=== PATIENT | female | born 1985 | race Native Hawaiian/Other Pacific Islander ===

== ENCOUNTER 2022-04-17 15:43 | Outpatient (CLI) | payer OTHER, SELFPAY ==
[2022-04-17 20:57] LABS: Hepatitis B Surface Antigen* Negative (Negative)
[2022-04-17 21:07] LABS: HIV 1/2/P24 Combo Screen* Negative (Negative)
[2022-04-17 21:14] LABS: Hepatitis C Virus Antibody* Negative (Negative)
[2022-04-17 21:51] LABS: Chlamydia DNA Amplified* NOT DETECTED (No Detected); GC DNA Amplified* NOT DETECTED (No Detected)
[2022-04-19 15:55] LABS: Rapid Plasma Reagin (RPR) Non Reactive (Non Reactive)
== END 2022-04-17 15:44 | disposition home or self-care (01) ==
PROVIDERS: PCP Family Medicine; Visit Provider Physician Assistant
DX: Z11.3 Encounter for screening for infections with a predominantly sexual mode of transmission (principal)
CPT/HCPCS: 86592; 86703; 86803; 87340; 87491; 87591

== ENCOUNTER 2022-08-17 17:06 | Outpatient (CLI) | payer OTHER, SELFPAY ==
--- NOTE | 2022-08-17 17:00 | CRLHL7_ITS ---
For Patients: As a result of the Century Cures Act, medical imaging exams and procedure reports are released immediately into your electronic medical record. You may view this report before your referring provider. If you have questions, please contact your health care provider. Indication: Forearm mass Technique: Ultrasound extremity left soft tissue Comparison: None Findings: Present in the left anterior form is a 8 millimeter oval complex cystic lesion just deep and contiguous with the cutaneous layer. Findings most likely represents a sebaceous cyst. Impression: Probable 8 millimeters sebaceous cyst left anterior forearm Dictated by Slick Solitario MD @ 08/17/2022 7:13:31 PM (Electronically Signed)
== END 2022-08-17 17:07 | disposition home or self-care (01) ==
LOC: US 17:07
PROVIDERS: PCP Family Medicine; Visit Provider Student in an Organized Health Care Education/Training Program
DX: R22.32 Localized swelling, mass and lump, left upper limb (principal)
CPT/HCPCS: 76882

== ENCOUNTER 2023-11-15 09:03 | Outpatient (CLI) | payer OTHER, SELFPAY | END 2023-11-15 09:04 | disposition home or self-care (01) | LOC: NFLDREF 09:04 | PROVIDERS: PCP Family Medicine; Visit Provider Physician Assistant | DX: Z01.419 Encounter for gynecological examination (general) (routine) without abnormal findings (principal); Z13.29 Encounter for screening for other suspected endocrine disorder; Z13.1 Encounter for screening for diabetes mellitus; Z13.6 Encounter for screening for cardiovascular disorders | CPT/HCPCS: 80061; 82947; 84443 ==

== ENCOUNTER 2024-11-18 08:56 | Outpatient (CLI) | payer OTHER, SELFPAY ==
[2024-11-20 02:19] LABS: HPV Source Cervix; HPV, High Risk by TMA Not Detected
[2024-12-05 17:18] LABS: Pap Test Reviewed by Path Done
== END 2024-11-18 08:57 | disposition home or self-care (01) ==
PROVIDERS: PCP Family Medicine; Visit Provider Physician Assistant
DX: R73.03 Prediabetes (principal); E66.01 Morbid (severe) obesity due to excess calories; Z11.51 Encounter for screening for human papillomavirus (HPV); Z13.6 Encounter for screening for cardiovascular disorders; Z13.1 Encounter for screening for diabetes mellitus; Z13.29 Encounter for screening for other suspected endocrine disorder; Z12.4 Encounter for screening for malignant neoplasm of cervix
CPT/HCPCS: 80061; 82947; 84443; 87624; 87625; 88141; 88142